=== PATIENT | male | born 1955 | race Two or more races ===

== ENCOUNTER → 2024-09-19 | Outpatient (CLI) | payer OTHER, SELFPAY ==
--- NOTE | 2024-09-19 08:45 | XR_ITS ---
EXAMINATION: PET/CT FUSION SKULL TO THIGH EXAM DATE AND TIME: September 19, 2024 at 0959 hours INDICATIONS: Diagnosis prostate carcinoma, staging CTDI:vol (mGy) 1.57 DLP: (mGycm) 117.72 PROCEDURE: 14.7 mCi FDG was administered intravenously To allow for distribution and uptake of radiotracer, the patient was allowed to rest quietly in a shielded room. Imaging was performed on an integrated 16-slice PET/CT scanner, with scanning from the skull base to the mid thigh. Serum blood glucose at the time of the injection was measured 142 mg/dL. CT scanning was performed without oral or intravenous contrast material. FINDINGS: Head and Neck: There is no anne-marie hypermetabolism in the neck. The visualized portions of the brain are normal in appearance on CT. Chest: There is no anne-marie hypermetabolism in the chest. There are no pulmonary nodules. Abdomen and Pelvis: There is no anne-marie hypermetabolism in retroperitoneal or pelvic chains. The spleen is normal in size and FDG avidity. Bilateral 1 to 3 mm renal calculi Musculoskeletal: 2 mm non hypermetabolic sclerotic focus right body of the L1 IMPRESSION: 2 mm non hypermetabolic sclerotic focus right body of L1, consider whole body bone scan follow-up
== END | disposition home or self-care (01) ==
PROVIDERS: PCP Family Medicine; Referring Provider Physician Assistant; Visit Provider Physician Assistant
DX: C61 Malignant neoplasm of prostate (principal)
CPT/HCPCS: 78815; A9552

== ENCOUNTER → 2024-10-23 | Outpatient (CLI) | payer OTHER, SELFPAY ==
--- NOTE | 2024-10-23 13:00 | XR_ITS ---
Examination: Bone scan whole body, radioisotope Date and time of exam: October 23, 2024 1350 hrs. Indications: Diagnosis malignant neoplasm prostate, staging Technique: Study has been performed with intravenous administration of 25.4 mci 99M technetium MDP. Anterior, posterior whole body images are obtained. Images have been obtained including the lower extremities. Findings: Symmetrical isotope accumulation Impression: No findings diagnostic for osseous metastatic disease
== END | disposition home or self-care (01) ==
LOC: SNUC 07:22
PROVIDERS: PCP Physician Assistant; Referring Provider Physician Assistant; Visit Provider Physician Assistant
DX: M89.9 Disorder of bone, unspecified (principal)
CPT/HCPCS: 78306; A9503